=== PATIENT | male | born 1985 ===

== ENCOUNTER 2018-04-17 16:00 | Outpatient (CLI) | payer OTHER | END 2018-04-17 16:01 | disposition home or self-care (01) | LOC: SLEEPLAB 16:00 | PROVIDERS: ATTEND Family Medicine | DX: G47.33 Obstructive sleep apnea (adult) (pediatric) (principal); F41.9 Anxiety disorder, unspecified; E66.9 Obesity, unspecified; R53.83 Other fatigue; R07.9 Chest pain, unspecified | CPT/HCPCS: 95806 ==